=== PATIENT | female | born 1975 | race Caucasian/White ===

== ENCOUNTER 2018-11-24 15:31 | Emergency (ER) | payer MEDICAID ==
[2018-11-24] MEDS: ACETAMINOPHEN 325 MG TAB PO (21:05)
== END 2018-11-24 22:41 | disposition home or self-care (01) ==
LOC: FTE 15:31
DX: M79.605 Pain in left leg (principal); R07.81 Pleurodynia; R51 Headache
CPT/HCPCS: 71100; 73562; 73590; 99284-25